=== PATIENT | female | born 1985 | race Native Hawaiian/Other Pacific Islander ===

== ENCOUNTER 2018-12-23 13:14 | Emergency (ER) | payer BC ==
[~2018-12-23] VITALS: Ht 154.9 cm; Wt 47.7 kg
[2018-12-23 13:28] VITALS: TEMP 99
[2018-12-23] MEDS ORDERED: PROM25TA52 PO (13:41)
[2018-12-23] MEDS ORDERED: CIPRO500 MG PO (13:41)
[2018-12-23 15:00] LABS: PLATELET COUNT 192 K/uL (152-353)
[2018-12-23 15:08] LABS: POTASSIUM 3.4 mmol/L (3.6-5.2)
[2018-12-23 17:05] VITALS: BP 110/64
== END 2018-12-23 17:05 | disposition home or self-care (01) ==
LOC: ED 13:14
PROVIDERS: Family Medicine
DX: N39.0 Urinary tract infection, site not specified (principal); E87.6 Hypokalemia
CPT/HCPCS: 36415; 80053; 81000; 85027; 87040; 96374; 99284; J1885